=== PATIENT | female | born 1945 | race Caucasian/White ===

== ENCOUNTER 2022-01-21 13:48 | Inpatient (IN) ==
[2022-01-21 14:50] LABS: Hematocrit 46.5 % (35.3-44.9); Hemoglobin 15.4 g/dL (11.5-15.4); Mean Corpuscular HGB Conc 33.1 g/dL (31.6-35.5); Mean Corpuscular Hemoglobin 30.3 pg (28.0-33.3); Mean Corpuscular Volume 91.4 fL (83.0-100.0); Mean Platelet Volume 10.1 fL (9.4-12.4); Platelet Count 342 K/mcL (140-400); Red Blood Count 5.09 M/mcL (3.82-4.97); Red Cell Distribution Width 12.3 % (11.5-14.5); White Blood Count 15.2 K/mcL (4.3-11.1)
[2022-01-21] MEDS ORDERED: Aspirin 325 MG TABLET PO ONE (14:52)
[2022-01-21 14:54] LABS: Prothrombin Time 10.7 Seconds (9.4-12.1)
[2022-01-21 14:55] LABS: BUN/Creatinine Ratio 18 (6-26); Blood Urea Nitrogen 14 mg/dL (8-23); Calcium 11.6 mg/dL (8.6-10.3); Carbon Dioxide 20 mEq/L (23-29); Chloride 104 mEq/L (98-107); Glucose 99 mg/dL (70-105); Osmolality,Calculated 285 (280-300); Potassium 3.8 mEq/L (3.5-5.1); Sodium 137 mEq/L (136-145); Troponin I < 0.03 ng/mL (< 0.04); eGFR For African Americans > 60 (> 60); eGFR For Non-African Americans > 60 (> 60)
[2022-01-21 14:57] LABS: Activated Partial Thrombo Time 28.7 Seconds (26.0-36.0)
[2022-01-21 15:36] LABS: Basophils # 0.2 K/mcL (0.0-0.2); Eosinophils # 0.5 K/mcL (0.0-0.6); Lymphocytes # 7.9 K/mcL (0.6-4.6); Monocytes # 0.6 K/mcL (0.0-1.3); Neutrophils # 6.1 K/mcL (1.6-8.9)
[2022-01-21 15:37] LABS: Platelet Estimate Normal (Normal); Reactive Lymphocytes Present (Not Present)
[2022-01-21] MEDS: Nitroglycerin 0.4 MG TAB.SUBL SL PRN ×3 (15:37→15:47)
[2022-01-21] MEDS ORDERED: Naloxone 0.4 MG/ML INJ IVP PRN (16:07)
[2022-01-21] MEDS ORDERED: Ondansetron 4 MG/2 ML VIAL IVP PRN (16:07)
[2022-01-21] MEDS ORDERED: Nitroglycerin 0.4 MG TAB.SUBL SL PRN (16:09)
[2022-01-21] MEDS ORDERED: Ringers Solution, Lactated 1,000 ML IVC SCH (16:15)
[2022-01-21] MEDS: Nystatin Cream 15 GM TUBE TP SCH (20:42)
[2022-01-22 03:32] LABS: Hematocrit 40.2 % (35.3-44.9); Mean Corpuscular HGB Conc 32.3 g/dL (31.6-35.5); Mean Corpuscular Hemoglobin 30.2 pg (28.0-33.3); Mean Corpuscular Volume 93.3 fL (83.0-100.0); Platelet Count 265 K/mcL (140-400); Red Blood Count 4.31 M/mcL (3.82-4.97); Red Cell Distribution Width 12.6 % (11.5-14.5)
[2022-01-22 03:44] LABS: BUN/Creatinine Ratio 17 (6-26); Blood Urea Nitrogen 15 mg/dL (8-23); Calcium 10.7 mg/dL (8.6-10.3); Carbon Dioxide 28 mEq/L (23-29); Chloride 105 mEq/L (98-107); Glucose 92 mg/dL (70-105); Osmolality,Calculated 286 (280-300); Potassium 3.9 mEq/L (3.5-5.1); Sodium 138 mEq/L (136-145); Troponin I < 0.03 ng/mL (< 0.04); eGFR For African Americans > 60 (> 60); eGFR For Non-African Americans > 60 (> 60)
[2022-01-22] MEDS: *HR* Enoxaparin 40 MG/0.4 ML SYRINGE SQ SCH (04:56)
[2022-01-22] MEDS: Metoprolol XL (24 HR) Succ 25 MG TAB.ER.24H PO SCH (09:10)
[2022-01-22] MEDS: Aspirin Enteric Coated 81 MG Tablet PO SCH (09:10)
[2022-01-22] MEDS: Nystatin Cream 15 GM TUBE TP SCH ×2 (09:11→20:22)
[2022-01-22] MEDS: Isosorbide MONOnitrate (24 HR) 30 MG TAB.ER.24H PO SCH (11:19)
[2022-01-22] MEDS: Acetaminophen 325 MG TABLET PO PRN ×2 (16:40→20:38)
[2022-01-23 01:53] LABS: Chol/HDL Ratio 5.4 (0-4.9)
[2022-01-23 01:54] LABS: Calcium 10.9 mg/dL (8.6-10.3); Magnesium 1.8 mg/dL (1.6-2.6); Phosphorous 3.5 mg/dL (2.7-4.5); Potassium 4.3 mEq/L (3.5-5.1)
[2022-01-23] MEDS: *HR* Enoxaparin 40 MG/0.4 ML SYRINGE SQ SCH (04:51)
[2022-01-23] MEDS: Metoprolol XL (24 HR) Succ 25 MG TAB.ER.24H PO SCH (07:49)
[2022-01-23] MEDS: Isosorbide MONOnitrate (24 HR) 30 MG TAB.ER.24H PO SCH (07:49)
[2022-01-23] MEDS: Aspirin Enteric Coated 81 MG Tablet PO SCH (07:49)
[2022-01-23] MEDS: Nystatin Cream 15 GM TUBE TP SCH ×2 (07:50→20:01)
[2022-01-23 08:16] LABS: Bacteria,Urine Few per hpf (None-Few); Bilirubin,Urine Negative (Negative); Blood,Urine Small (Negative); Clarity,Urine Turbid (Clear); Color,Urine Light-Yellow (Yellow); Glucose,Urine (UA) Normal (Normal); Ketones,Urine Negative (Negative); Leukocyte Esterase,Urine Moderate (Negative); Nitrite,Urine Negative (Negative); Protein,Urine Negative (Neg-Trace); Specific Gravity,Urine 1.017 (1.010-1.025); Squamous Epithelial Cell,Urine Few per hpf (None-Few); Urobilinogen,Urine Normal (Normal); WBC,Urine 15-30 per hpf (0-3)
[2022-01-23] MEDS ORDERED: Multivit/Ca/Min/Fe/FA 1 TAB TABLET PO SCH (09:00)
[2022-01-23] MEDS ORDERED: Cholecalciferol (D-3) 1,000 UNIT (25MCG) TABLET PO SCH (09:00)
[2022-01-23] MEDS ORDERED: *HR* FentaNYL (PF) 100 MCG/2 ML VIAL ONE (09:37)
[2022-01-23] MEDS ORDERED: 0.9 % Sodium Chloride 1,000 ML ONE ×2 (09:37→15:01)
[2022-01-23] MEDS ORDERED: *HR* Heparin 10,000 UNIT/10 ML VIAL ONE ×2 (09:37→11:03)
[2022-01-23] MEDS ORDERED: Heparin 1,000 UNITS/500 mL 500 ML ONE (09:37)
[2022-01-23] MEDS ORDERED: *HR* Midazolam HCl 2 MG/2 ML VIAL ONE (09:37)
[2022-01-23] MEDS ORDERED: Iopamidol - 370 200 ML INFUS..BTL ONE (09:38)
[2022-01-23] MEDS ORDERED: Nitroglycerin 1,000 MCG/5 ML VIAL IV ONE (09:38)
[2022-01-23] MEDS ORDERED: *HR* Ticagrelor 90 MG TABLET ONE (10:51)
[2022-01-23] MEDS ORDERED: Tirofiban 12.5 MG/250ML 12.5 MG/250 ML BAG ONE (11:05)
[2022-01-23] MEDS ORDERED: *HR* Nitroprusside 50 MG VIAL IVC ONE (11:05)
[2022-01-23] MEDS ORDERED: D5% in Water 250 ML ONE (11:06)
[2022-01-23] MEDS ORDERED: Morphine Sulfate 2 MG/ML SYRINGE IVP PRN (12:13)
[2022-01-23] MEDS ORDERED: 0.9 % Sodium Chloride 250 ML ONE ×2 (13:48→13:49)
[2022-01-23 14:17] LABS: Hematocrit 31.5 % (35.3-44.9); Mean Corpuscular Hemoglobin 30.8 pg (28.0-33.3); Mean Corpuscular Volume 93.2 fL (83.0-100.0); Mean Platelet Volume 10.1 fL (9.4-12.4); Platelet Count 293 K/mcL (140-400); Red Blood Count 3.38 M/mcL (3.82-4.97); Red Cell Distribution Width 12.5 % (11.5-14.5); White Blood Count 11.7 K/mcL (4.3-11.1)
[2022-01-23 14:18] LABS: Hemoglobin 10.4 g/dL (11.5-15.4)
[2022-01-23 14:24] LABS: INR 1.2; Prothrombin Time 13.4 Seconds (9.4-12.1)
[2022-01-23] MEDS ORDERED: Protamine Sulfate 50 MG/5 ML VIAL IVP ONE (15:28)
[2022-01-23] MEDS ORDERED: *HR* FentaNYL (PF) 100 MCG/2 ML VIAL IVP ONE (15:41)
[2022-01-23 15:42] LABS: Basophils % 0.3 %; Eosinophils % 0.2 %; Hematocrit 27.4 % (35.3-44.9); Hemoglobin 8.9 g/dL (11.5-15.4); Immature Granulocytes % 0.5 % (0-4); Lymphocytes # 1.5 K/mcL (0.6-4.6); Lymphocytes % 13.1 %; Mean Corpuscular HGB Conc 32.5 g/dL (31.6-35.5); Mean Corpuscular Hemoglobin 30.8 pg (28.0-33.3); Mean Corpuscular Volume 94.8 fL (83.0-100.0); Mean Platelet Volume 9.9 fL (9.4-12.4); Monocytes # 0.6 K/mcL (0.0-1.3); Monocytes % 5.2 %; Neutrophils # 9.4 K/mcL (1.6-8.9); Platelet Count 204 K/mcL (140-400); Red Blood Count 2.89 M/mcL (3.82-4.97); Red Cell Distribution Width 12.6 % (11.5-14.5); Segmented Neutrophils % 80.7 %; White Blood Count 11.7 K/mcL (4.3-11.1)
[2022-01-23] MEDS ORDERED: Iopamidol - 370 500 ML MLS IVP ONE (16:38)
[2022-01-23] MEDS: *HR* Ticagrelor 90 MG TABLET PO SCH ×2 (20:01→20:10)
[2022-01-23 20:15] LABS: Hematocrit 40.2 % (35.3-44.9)
[2022-01-23 20:17] LABS: Hemoglobin 13.4 g/dL (11.5-15.4)
[2022-01-24 01:45] LABS: Hematocrit 36.9 % (35.3-44.9); Hemoglobin 12.5 g/dL (11.5-15.4)
[2022-01-24 01:55] LABS: BUN/Creatinine Ratio 24 (6-26); Blood Urea Nitrogen 15 mg/dL (8-23)
[2022-01-24] MEDS: Aspirin Enteric Coated 81 MG Tablet PO SCH (07:23)
[2022-01-24] MEDS: *HR* Ticagrelor 90 MG TABLET PO SCH ×2 (07:23→20:37)
[2022-01-24] MEDS: Nystatin Cream 15 GM TUBE TP SCH ×2 (07:26→20:37)
[2022-01-24] MEDS: Metoprolol XL (24 HR) Succ 25 MG TAB.ER.24H PO SCH (07:56)
[2022-01-24 09:36] LABS: Hematocrit 37.8 % (35.3-44.9); Hemoglobin 12.6 g/dL (11.5-15.4)
[2022-01-24 09:37] LABS: Hematocrit 37.8 % (35.3-44.9); Hemoglobin 12.5 g/dL (11.5-15.4)
[2022-01-24 12:33] LABS: Hematocrit 38.4 % (35.3-44.9); Hemoglobin 12.9 g/dL (11.5-15.4)
[2022-01-24] MEDS ORDERED: Melatonin 3 MG TABLET PO PRN (22:06)
[2022-01-25] MEDS: Aspirin Enteric Coated 81 MG Tablet PO SCH (07:35)
[2022-01-25] MEDS: Metoprolol XL (24 HR) Succ 25 MG TAB.ER.24H PO SCH (07:35)
[2022-01-25] MEDS: *HR* Ticagrelor 90 MG TABLET PO SCH (07:35)
[2022-01-25] MEDS: Nystatin Cream 15 GM TUBE TP SCH (07:37)
[2022-01-25 07:50] VITALS: BP 150/65; TEMP 97.8; O2SAT 98
[2022-01-25 07:55] VITALS: PULSE 82
[2022-01-25 08:58] LABS: Basophils % 0.3 %; Eosinophils # 0.2 K/mcL (0.0-0.6); Eosinophils % 1.6 %; Hematocrit 37.5 % (35.3-44.9); Hemoglobin 12.4 g/dL (11.5-15.4); Immature Granulocytes % 0.4 % (0-4); Lymphocytes # 2.7 K/mcL (0.6-4.6); Lymphocytes % 23.5 %; Mean Corpuscular HGB Conc 33.1 g/dL (31.6-35.5); Mean Corpuscular Hemoglobin 29.5 pg (28.0-33.3); Mean Corpuscular Volume 89.1 fL (83.0-100.0); Mean Platelet Volume 9.8 fL (9.4-12.4); Monocytes # 0.7 K/mcL (0.0-1.3); Monocytes % 5.8 %; Platelet Count 201 K/mcL (140-400); Red Blood Count 4.21 M/mcL (3.82-4.97); Red Cell Distribution Width 15.4 % (11.5-14.5); Segmented Neutrophils % 68.4 %; White Blood Count 11.6 K/mcL (4.3-11.1)
[2022-01-25 09:21] LABS: Alanine Aminotransferase 42 Units/L (7-52); Albumin 3.6 g/dL (3.5-5.7); Albumin/Globulin Ratio 1.6 (1.1-2.2); Alkaline Phosphatase 45 Units/L (34-104); Aspartate Amino Transferase 37 Units/L (13-39); BUN/Creatinine Ratio 20 (6-26); Bilirubin,Total 0.9 mg/dL (0.3-1.0); Blood Urea Nitrogen 13 mg/dL (8-23); Calcium 9.5 mg/dL (8.6-10.3); Carbon Dioxide 25 mEq/L (23-29); Chloride 106 mEq/L (98-107); Globulin 2.2 g/dL (2.4-3.5); Glucose 154 mg/dL (70-105); Osmolality,Calculated 285 (280-300); Sodium 136 mEq/L (136-145); Total Protein 5.8 g/dL (6.4-8.9)
== END 2022-01-25 14:00 | disposition home or self-care (01) | DRG 302 ==
LOC: EMEROOARM 13:48 → 2ANU 13:48 → SUATTDRO 17:24 → 2ANU 18:15 → 2NNU 01-23 14:52
PROVIDERS: ADMIT Internal Medicine; ATTEND Internal Medicine

== ENCOUNTER 2022-01-28 11:56 | Observation (INO) ==
[2022-01-28] MEDS ORDERED: Iopamidol - 370 500 ML MLS IVP ONE (13:52)
[2022-01-28 14:10] LABS: Basophils % 0.3 %; Eosinophils # 0.1 K/mcL (0.0-0.6); Eosinophils % 0.5 %; Hematocrit 37.4 % (35.3-44.9); Hemoglobin 12.4 g/dL (11.5-15.4); Immature Granulocytes % 0.5 % (0-4); Lymphocytes # 1.8 K/mcL (0.6-4.6); Mean Corpuscular HGB Conc 33.2 g/dL (31.6-35.5); Mean Corpuscular Hemoglobin 29.5 pg (28.0-33.3); Mean Platelet Volume 9.8 fL (9.4-12.4); Monocytes # 1.3 K/mcL (0.0-1.3); Neutrophils # 9.9 K/mcL (1.6-8.9); Platelet Count 314 K/mcL (140-400); Segmented Neutrophils % 74.7 %; White Blood Count 13.2 K/mcL (4.3-11.1)
[2022-01-28 14:21] LABS: INR 1.1
[2022-01-28 14:24] LABS: Activated Partial Thrombo Time 26.5 Seconds (26.0-36.0)
[2022-01-28 15:02] LABS: BUN/Creatinine Ratio 23 (6-26); Blood Urea Nitrogen 14 mg/dL (8-23); Calcium 9.9 mg/dL (8.6-10.3); Carbon Dioxide 21 mEq/L (23-29); Chloride 105 mEq/L (98-107); Glucose 102 mg/dL (70-105); Osmolality,Calculated 279 (280-300); Potassium 4.9 mEq/L (3.5-5.1); Sodium 134 mEq/L (136-145); Troponin I 0.08 ng/mL (< 0.04)
[2022-01-28 15:11] LABS: Bacteria,Urine Few per hpf (None-Few); Bilirubin,Urine Negative (Negative); Blood,Urine Trace (Negative); Clarity,Urine Turbid (Clear); Color,Urine Yellow (Yellow); Glucose,Urine (UA) Normal (Normal); Ketones,Urine 40 mg/dL (Negative); Leukocyte Esterase,Urine Moderate (Negative); Mucus,Urine Few per lpf (None-Few); Nitrite,Urine Positive (Negative); PH,Urine 8.5 pH Units (5.0-8.0); Protein,Urine Trace mg/dL (Neg-Trace); Specific Gravity,Urine 1.021 (1.010-1.025); Squamous Epithelial Cell,Urine Few per hpf (None-Few); WBC,Urine 50-100 per hpf (0-3)
[2022-01-28] MEDS ORDERED: cefTRIAXone 1,000 MG in Water for inj. (sterile) 10 ML IVP ONE (15:35)
[2022-01-28] MEDS ORDERED: Naloxone 0.4 MG/ML INJ IVP PRN (17:04)
[2022-01-28] MEDS: Isosorbide MONOnitrate (24 HR) 30 MG TAB.ER.24H PO SCH (18:44)
[2022-01-28] MEDS: *HR* Ticagrelor 90 MG TABLET PO SCH (21:10)
[2022-01-29 03:32] LABS: Hematocrit 32.4 % (35.3-44.9); Mean Corpuscular Hemoglobin 29.2 pg (28.0-33.3); Mean Corpuscular Volume 88.3 fL (83.0-100.0); Mean Platelet Volume 9.6 fL (9.4-12.4); Platelet Count 314 K/mcL (140-400); Red Blood Count 3.67 M/mcL (3.82-4.97); Red Cell Distribution Width 13.8 % (11.5-14.5); White Blood Count 13.1 K/mcL (4.3-11.1)
[2022-01-29 03:33] LABS: Hemoglobin 10.7 g/dL (11.5-15.4)
[2022-01-29 03:57] LABS: BUN/Creatinine Ratio 28 (6-26); Blood Urea Nitrogen 15 mg/dL (8-23); Calcium 9.4 mg/dL (8.6-10.3); Carbon Dioxide 21 mEq/L (23-29); Chloride 104 mEq/L (98-107); Glucose 99 mg/dL (70-105); Magnesium 2.1 mg/dL (1.6-2.6); Osmolality,Calculated 273 (280-300); Potassium 3.9 mEq/L (3.5-5.1); Sodium 131 mEq/L (136-145); Troponin I 0.06 ng/mL (< 0.04)
[2022-01-29] MEDS: Metoprolol XL (24 HR) Succ 25 MG TAB.ER.24H PO SCH (08:36)
[2022-01-29] MEDS: Isosorbide MONOnitrate (24 HR) 30 MG TAB.ER.24H PO SCH (08:36)
[2022-01-29] MEDS: Aspirin Enteric Coated 81 MG Tablet PO SCH (08:36)
[2022-01-29] MEDS: *HR* Ticagrelor 90 MG TABLET PO SCH ×2 (08:36→22:23)
[2022-01-29] MEDS: Acetaminophen 325 MG TABLET PO PRN ×2 (11:08→22:36)
[2022-01-29] MEDS ORDERED: cefTRIAXone 1,000 MG in Water for inj. (sterile) 10 ML IVP SCH (14:00)
[2022-01-29] MEDS: *HR* Heparin 5,000 UNIT/ML VIAL SQ SCH (17:34)
[2022-01-30 02:25] LABS: BUN/Creatinine Ratio 26 (6-26); Blood Urea Nitrogen 15 mg/dL (8-23); Calcium 9.3 mg/dL (8.6-10.3); Carbon Dioxide 22 mEq/L (23-29); Chloride 104 mEq/L (98-107); Glucose 137 mg/dL (70-105); Osmolality,Calculated 277 (280-300); Potassium 3.6 mEq/L (3.5-5.1); Sodium 132 mEq/L (136-145)
[2022-01-30 04:23] VITALS: PULSE 83
[2022-01-30] MEDS: *HR* Heparin 5,000 UNIT/ML VIAL SQ SCH (07:49)
[2022-01-30 07:50] VITALS: BP 132/69; TEMP 97.7; O2SAT 95
[2022-01-30] MEDS: Isosorbide MONOnitrate (24 HR) 30 MG TAB.ER.24H PO SCH (07:51)
[2022-01-30] MEDS: *HR* Ticagrelor 90 MG TABLET PO SCH (07:51)
[2022-01-30] MEDS: Aspirin Enteric Coated 81 MG Tablet PO SCH (07:51)
[2022-01-30] MEDS: Metoprolol XL (24 HR) Succ 25 MG TAB.ER.24H PO SCH (07:51)
== END 2022-01-30 15:08 | disposition home or self-care (01) ==
LOC: EMEROOARM 11:56 → 3BNU 11:56 → SUATTDRO 17:46 → 3BNU 18:37
PROVIDERS: ADMIT Internal Medicine; ATTEND Registered Nurse